=== PATIENT | male | born 1965 | race Caucasian/White ===

== ENCOUNTER 2020-11-14 17:04 | Emergency (ER) | payer OTHER ==
[~2020-11-14] VITALS: Ht 185.4 cm; Wt 93.0 kg
[2020-11-14 17:35] VITALS: BP 117/71
== END 2020-11-14 20:12 | disposition left against medical advice (07) ==
LOC: M.ERS 17:04
DX: R06.02 Shortness of breath (principal); Z20.822 Contact with and (suspected) exposure to COVID-19; Z53.21 Procedure and treatment not carried out due to patient leaving prior to being seen by health care provider